=== PATIENT | male | born 1960 | race Caucasian/White ===

== ENCOUNTER → 2021-03-12 08:24 | Outpatient (CLI) | payer MEDICAID, SELFPAY ==
[2017-07-20 16:33] VITALS: BMI 36.7
[2021-03-13 08:01] LABS: Carcinoembryonic Antigen 1.6 ng/mL (0.0-4.7)
== END ==
PROVIDERS: PCP Family Medicine; Referring Provider Physician Assistant; Visit Provider Physician Assistant
DX: D23.39 Other benign neoplasm of skin of other parts of face (principal); D23.5 Other benign neoplasm of skin of trunk; B35.3 Tinea pedis
CPT/HCPCS: 36415; 82378

== ENCOUNTER 2021-08-20 14:52 | Emergency (ER) | payer MEDICAID, SELFPAY ==
[2021-08-20 14:52] VITALS: BP 180/114; PULSE 112; RESP 20; TEMP 36; O2SAT 95; BMI 41.7
--- NOTE | 2021-08-20 15:04 | CT_ITS ---
STUDY: CT ABDOMEN AND PELVIS WITH CONTRAST REASON FOR EXAM: Male, 61 years old. Recent colectomy, abdominal pain RADIATION DOSAGE (If Supplied By Facility): CTDIvol = ( 20.07 ) mGy, DLP = ( 2599.94 ) mGycm TECHNIQUE: Transaxial images were obtained from the dome of the diaphragm to the symphysis pubis with oral contrast. 100 mL ISOVUE-370 was administered. Sagittal and coronal images were reconstructed. Individualized dose optimization techniques were used for this CT. COMPARISON: None. FINDINGS: Mild atelectasis in the lung bases. The visualized portions of the heart are within normal limits. There is decreased attenuation of the liver consistent with steatosis. Normal gallbladder and extrahepatic biliary system. Simple cyst of the left hepatic lobe is stable. No required imaging follow-up needed given high likelihood of benign nature. Normal spleen. Normal pancreas. Normal bilateral adrenal glands. Normal right kidney. Indeterminate density lesion of the left renal cortex measuring 1.1 cm is stable since 2017, suggesting benign etiology. Normal visualized stomach. Normal small intestine. Partial colectomy involving the right colon with surgical anastomosis in the right lower quadrant. Mild amount of fluid in the right lower quadrant although no discrete, focal fluid collection/abscess. Tiny locules of air in the right lower quadrant adjacent to the surgical anastomosis although no extraluminal contrast is seen. Fecal residue of the transverse colon. No colon wall thickening identified. The appendix is visualized and appears normal. Mild atherosclerosis of the abdominal aorta. Normal inferior vena cava. Normal retroperitoneum. Normal urinary bladder. Normal abdominal wall. No destructive bony process. CT/Abdomen/Pelvis WITH Contrast IMPRESSION: 1. Right partial colectomy with expected postoperative fluid given recent surgery. No abscess or significant pneumoperitoneum. No extraluminal contrast although oral contrast does not extend to the surgical anastomosis. Electronically Signed: Lee Posada MD ([place]) at 18:02 EST , Service support ,
--- NOTE | 2021-08-20 15:06 | EDS_ITS ---
HPI History of Present Illness Chief Complaint: Abd Pain Narrative Narrative: Patient is a 61-year-old male who had a colectomy approximately 2 weeks ago. He states he has been doing well and has been increasing his diet and still having bowel movements. He states that this morning he ate a bowl of cereal as well as a piece of pumpkin pie. He states approximately 2 to 3 hours later he developed severe pain in his right sided abdomen. He denies any vomiting or constipation or diarrhea. He denies any fevers chills dysuria or injury. He states he took his pain meds at home with no symptom improvement and secondary to this presents for evaluation. PFSH PFS Home Medications desmopressin 0.2 mg PO DAILY PRN 07/20/17 [History Last Taken Unknown] omeprazole 40 mg PO DAILY 07/20/17 [History Last Taken Unknown] levothyroxine 175 mcg PO DAILY 08/20/21 [History Last Taken Unknown] levothyroxine 200 mcg PO MEDEROS 08/20/21 [History Last Taken Unknown] metformin 500 mg PO DAILY 08/20/21 [History Last Taken Unknown] Allergy/AdvReac Type Severity Reaction Status Date / Time No Known Allergies Allergy Verified 08/20/21 14:52 Surgical History (Updated 08/20/21 @ 15:23 by Lorena Hickey) History of colectomy Social History Smoking Status: Unknown if ever smoked ROS [facility] ED Constitutional Constitutional ED: Denies chills or fever(s) ENT ENT ED: Denies sore throat Cardiovascular Cardiovascular: Denies chest pain Respiratory/Chest Respiratory/Chest: Denies cough or dyspnea Gastrointestinal Gastrointestinal: Reports abdominal pain and nausea; Denies constipation, diarrhea or vomiting Genitourinary Genitourinary ED: Denies dysuria Musculoskeletal Musculoskeletal: Denies back pain or myalgias Integumentary Denies rash Neurologic Neurologic: Denies headache(s) Hematologic/Lymphatic Hematologic/Lymphatic: Denies easy bleeding or easy bruising EXAM Physical Exam Const Vital Signs: 08/20/21 14:52 08/20/21 16:25 08/20/21 18:07 Temperature 96.8 F L Temperature Source Temporal Pulse Rate 112 H 87 92 Respiratory Rate 20 H 18 22 H Blood Pressure 180/114 H 143/85 H 131/85 H Blood Pressure Mean 136 104 100 Pulse Ox 95 96 95 Oxygen Delivery Method Room Air Room Air Room Air 08/20/21 18:59 11/25/21 20:40 Temperature 98.5 F 97.2 F L Temperature Source Oral Pulse Rate 86 87 Respiratory Rate 16 18 Blood Pressure 141/91 H 158/94 H Blood Pressure Mean 107 115 Pulse Ox 92 93 Oxygen Delivery Method Room Air Positive well nourished, well developed and obese General Appearance ED: well developed Nutritional Appearance: obese HEENT Reports dry mucous membranes Mouth ED: Yes dry mucous membranes Mouth: dry mucous membranes Eyes PERRL and EOMs intact bilaterally Neck supple Chest Wall palpation of chest normal Resp normal respiratory effort and clear to auscultation bilaterally Cardio regular rhythm Rate: tachycardic and other Other Details: Radial pulses are plus 2 out of 4 bilaterally are equal and symmetric GI GI Narrative: Abdomen is obese and slightly firm with hypoactive bowel sounds. There is diffuse pain on palpation greatest along the right upper and lower quadrant. Patient does have mild guarding with palpation but no pulsatile mass. No overt rigidity. There are postsurgical changes to the abdomen consistent with his recent colectomy that are clean dry and intact Back/Spine no CVA tenderness Extremity normal to inspection Neuro oriented x3 and CN's II-XII intact bilaterally Sensorium / Orientation: alert Motor Exam: strength 5/5 throughout Psych mental status grossly normal Skin no rashes or lesions noted Skin Narrative: Postsurgical changes of the abdomen as documented above MDM MDM MDM Narrative Medical decision making narrative: Patient presented to the ER afebrile with his recent colectomy and anastomosis as well as sudden onset pain there is concern for an infection or a possible leak. Basic labs were obtained which showed no clinically significant finding. CT scan with oral and IV contrast revealed postsurgical changes without obvious infection or anastomosis leak. However patient was requiring multiple doses of pain medication. Secondary to his persi stent pain and nondiagnostic CAT scan I did discuss the case with general surgery at the [facility] but none a site where his surgery was performed. They agree that he should be transferred to their facility for observation to ensure there is no anastomosis leak. The patient was counseled on this and is agreeable with the plan of care and therefore will be transferred at this time Lab Data Attestation: I reviewed the patient's lab results. Labs: Laboratory Results - last 24 hr 08/20/21 08/20/21 08/20/21 15:15 15:15 15:15 WBC 10.9 RBC 4.55 L Hgb 14.6 Hct 43.6 MCV 95.8 H MCH 32.1 H MCHC 33.5 RDW Std Deviation 49.1 H RDW Coeff of Danielle 13.8 Plt Count 435 MPV 9.9 Immature Gran % (Auto) 2.600 H Neut % (Auto) 65.3 Lymph % (Auto) 21.9 Boyd % (Auto) 9.0 Eos % (Auto) 0.8 Baso % (Auto) 0.4 Absolute Neuts (auto) 7.1 Absolute Lymphs (auto) 2.40 Nucleated RBC % 0 Sodium 137 Potassium 3.8 Chloride 105 Carbon Dioxide 24.0 Anion Gap 8 BUN 20 H Creatinine 0.92 Estim Creat Clear Calc 100.52 Est GFR (MDRD) Af Amer 108 Est GFR (MDRD) Non-Af 89 BUN/Creatinine Ratio 21.7 H Glucose 92 Lactic Acid 1.7 Calcium 8.6 Total Bilirubin 0.40 Direct Bilirubin 0.15 AST 80 H ALT 211 H Alkaline Phosphatase 104 Total Protein 7.2 Albumin 3.2 Globulin 4.0 Lipase 295 Radiography Diagnostic Testing: Clinical Impression(s) from Imaging Studies Abdomen/Pelvis CT 08/20/21 15:04 IMPRESSION: 1. Right partial colectomy with expected postoperative fluid given recent surgery. No abscess or significant pneumoperitoneum. No extraluminal contrast although oral contrast does not extend to the surgical anastomosis. Electronically Signed: Lee Posada MD ([place]) at 18:02 EST , Service support , Discharge Plan Triage Chief Complaint: Abd Pain ED Provider: Eddie Greco Dx/Rx/DC Orders Clinical Impression: Acute postoperative abdominal pain Prescriptions: No Action desmopressin 0.2 MG tablet 0.2 mg PO DAILY PRN (Reason: Dehydration) RF: 0 omeprazole 40 MG capsule,delayed release(DR/EC) 40 mg PO DAILY RF: 0 metformin 500 mg Tablet 500 mg PO DAILY RF: 0 levothyroxine 175 mcg Tablet 175 mcg PO DAILY RF: 0 levothyroxine 200 mcg Tablet 200 mcg PO MEDEROS RF: 0 Primary Care Provider: Gerry Man Referrals: Gerry Man MD [Primary Care Provider] - Disposition Disposition: Transfer to Another Type F Discharge Location: [facility]
[2021-08-20] MEDS: HYDROmorphone 1 MG/ML Syringe IV ×4 (15:17→21:26)
[2021-08-20] MEDS: 0.9% Normal Saline 1,000 ML 999 ML IV (15:17)
[2021-08-20] MEDS: Ondansetron 4 MG/2 ML Vial IV ×2 (15:17→21:26)
[2021-08-20 15:24] LABS: Absolute Neutrophil Count 7.1 X10^3/uL (2.0-7.7); Basophil# 0.04 X10^3/uL; Basophil% 0.4 % (0-1); Eosinophil# 0.09 X10^3/uL; Eosinophils% 0.8 % (0-5); Hematocrit 43.6 % (40-54); Hemoglobin 14.6 g/dL (13.0-16.5); Lymphocyte % 21.9 % (19-41); Mean Corp Hgb Conc 33.5 g/dL (32-36); Mean Corpuscular Hgb 32.1 pg (27.0-32.0); Mean Corpuscular Volume 95.8 fL (80-94); Mean Platelet Vol. 9.9 fl (6.2-12.0); Monocyte# 0.99 X10^3/uL; NRBC Flagged by Analyzer 0 % (0-5); Neutrophil # 7.14 X10^3/uL (2.7-7.7); Neutrophil % 65.3 % (47-70); Platelet Count 435 K/mm3 (150-450); RBC Distribution Width CV 13.8 % (11.6-14.6); RBC Distribution Width SD 49.1 fl (35.1-43.9); Red Blood Count 4.55 M/mm3 (4.6-6.2); White Blood Count 10.9 K/mm3 (4.4-11.0)
[2021-08-20 15:54] LABS: AST(SGOT) 80 U/L (15-37); Alanine Aminotransfer ALT/SGPT 211 U/L (16-61); Albumin, Serum 3.2 g/dL (3.2-5.0); Alkaline Phosphatase 104 U/L (45-117); Anion Gap 8 (5-15); BUN 20 mg/dL (7-18); BUN/Creat Ratio 21.7 RATIO (10-20); Bilirubin, Direct 0.15 mg/dL (0.00-0.30); Calcium,Total 8.6 mg/dL (8.5-10.1); Chloride 105 mmol/L (98-107); Creatinine, Serum 0.92 mg/dL (0.70-1.30); EST Glomerular Filtration Rate 89 mL/min (>60); Est Glom Filt Rate - Afr Amer 108 mL/min (>60); Estimated Creatinine Clearance 100.52 ml/min; Glucose 92 mg/dL (74-106); Lipase 295 U/L (73-393); Potassium 3.8 mmol/L (3.5-5.1); Protein, Total 7.2 g/dL (6.4-8.2); Sodium Level 137 mmol/L (136-145)
[2021-08-20 16:01] LABS: Lactic Acid 1.7 mmol/L (0.4-1.9)
[2021-08-20] MEDS: HYDROmorphone 0.5 MG/0.5 ML SYRINGE IV (16:22)
[2021-08-20 16:25] VITALS: BP 143/85; PULSE 87; RESP 18; O2SAT 96
[2021-08-20 18:07] VITALS: BP 131/85; PULSE 92; RESP 22; O2SAT 95
--- NOTE | 2021-08-20 18:42 | NURSING ---
PAGED DR BELL , DIRECTOR LEARNING AND DEVELOPMENT FOR DR JONES. THROUGH [facility]
--- NOTE | 2021-08-20 18:52 | NURSING ---
CALLED [facility] TRANSFER LINE, TALKED TO NANETTE. SHE IS TALKING TO DR QUINONES
[2021-08-20 18:59] VITALS: BP 141/91; PULSE 86; RESP 16; TEMP 36.9; O2SAT 92
--- NOTE | 2021-08-20 19:34 | ED.RN ---
[facility] CALLED TO CHECK COVID STATUS ON PATIENT. THEY ARE WORKING ON PLACEMENT AT THIS TIME
--- NOTE | 2021-08-20 20:15 | ED.RN ---
PATIENT HAS BEEN ACCEPTED TO [place] [id number] BED 2 NURSE TO NURSE [phone]
--- NOTE | 2021-08-20 20:21 | ED.RN ---
[facility] CALLED FOR TRANSPORT ETA 20-30 MINS
[2021-08-20 20:40] VITALS: BP 158/94; PULSE 87; RESP 18; TEMP 36.2; O2SAT 93
== END 2021-08-20 21:33 | disposition other institution (70) ==
PROVIDERS: Emergency Provider Emergency Medicine; PCP Family Medicine
DX: G89.18 Other acute postprocedural pain (principal); R10.9 Unspecified abdominal pain; Z79.84 Long term (current) use of oral hypoglycemic drugs; Z90.49 Acquired absence of other specified parts of digestive tract; E66.9 Obesity, unspecified
CPT/HCPCS: 36415; 74177; 80048; 80076; 83605; 83690; 85025; 87426; 96361; 96374; 96375; 96376; 99285; J7030; Q9967; A4216; J2405

== ENCOUNTER → 2023-10-26 | Outpatient (CLI) | payer MEDICARE, MEDICAID, SELFPAY ==
--- NOTE | 2023-10-26 13:03 | MRI_ITS ---
INDICATION: BILAT HEARING LOSS, TINNITUS EXAMINATION: MRI - MR Brain WO/W Contrast TECHNIQUE: MRI examination of brain obtained with standard protocol including multiplanar multiecho imaging. MRI examination brain IACs obtained with standard protocol including multiplanar multiecho pre and postcontrast imaging. Contrast: 20 mL Clariscan. COMPARISON: None. FINDINGS: HEMISPHERES, CEREBELLUM AND BRAINSTEM: 1. The cerebral parenchyma, ventricular system, subarachnoid spaces have normal configuration and density. There is a normal gyral pattern. There is normal jha/white differentiation. No midline shift.. 2. Mild involutional changes and chronic microvascular deep white matter disease noted. No areas fluid restriction or acute ischemic change. 3. No intraparenchymal mass, hemorrhage, or acute territorial infarct. 4. The cerebellum, brainstem, basilar and suprasellar cisterns have normal appearance. No Chiari malformation. 5. Normal appearance of the 7th and 8th cranial nerve complexes, IACs and membranous labyrinth. No masses or areas of abnormal contrast enhancement. No evidence of soft tissue or fluid accumulation middle ear cavities or mastoid air cells. PITUITARY: Infundibulum and pituitary have normal configuration. Midline structures appear normal. CSF SPACES: Appropriate for age. No hydrocephalus. Basal cisterns are patent. VESSELS: 1. There are normal flow voids noted in the great vessels at the skull base ORBITS AND PARANASAL SINUSES: 1. Both globes, extraocular muscles, optic nerves and retrobulbar fat appear unremarkable. 2. Moderate ethmoid and maxillary sinus disease. BONY ELEMENTS: Bony elements of the cranial vault, facial skeleton and skull base have normal appearance. SCALP AND SOFT TISSUES: Normal appearance of the soft tissues of the scalp and the visualized face OTHER: None MRI/Brain W/WO Contrast IMPRESSION: 1. Mild involutional changes and chronic microvascular deep white matter disease. 2. No intracranial mass, hemorrhage, or acute territorial infarct. 3. Normal appearance of the 7th and 8th cranial nerve complexes and IACs and membranous labyrinth. No masses or abnormal enhancement. No soft tissue or fluid accumulation the middle ear cavities or mastoid air cells. 4. Moderate ethmoid and maxillary sinus disease. Electronically Signed: Varun Au MD at 23:56 EST ,
[2023-10-26 13:57] LABS: CREATININE FINGERSTICK 1.1 mg/dL (0.70-1.30); EGFR FINGERSTICK > 60.0000 mL/min (>60)
== END | disposition home or self-care (01) ==
LOC: MRI 13:00
PROVIDERS: PCP Family Medicine; Referring Provider Otolaryngology; Visit Provider Otolaryngology
DX: H90.3 Sensorineural hearing loss, bilateral (principal); H93.13 Tinnitus, bilateral
CPT/HCPCS: 70553; A9575